=== PATIENT | female | born 1990 | race Caucasian/White ===

== ENCOUNTER 2024-02-22 20:52 | Emergency (ER) | payer MEDICAID ==
[~2024-02-22] VITALS: Ht 177.8 cm; Wt 68.0 kg
[2024-02-22] MEDS ORDERED: hydrOXYzine 10 MG TABLET ONE (21:29)
[2024-02-22] MEDS ORDERED: hydrOXYzine HCL SYRUP 10 MG/5 ML UDC PO ONE (21:30)
[2024-02-22] MEDS ORDERED: FAMOTIDINE (20 MG) 20 MG TABLET ONE (21:31)
[2024-02-22] MEDS ORDERED: predniSONE 20 MG TABLET ONE (21:31)
[2024-02-22] MEDS: FAMOTIDINE (20 MG) 20 MG TABLET PO ONE (21:46)
[2024-02-22] MEDS: predniSONE 50 MG TABLET PO ONE (21:46)
[2024-02-22] MEDS: hydrOXYzine 10 MG TABLET PO ONE (21:47)
[2024-02-22] MEDS ORDERED: PRED20TA PO (22:00)
[2024-02-22] MEDS ORDERED: HYDR-500 PO (22:00)
[2024-02-22 22:17] VITALS: BP 125/79; TEMP 98.6; O2SAT 98
== END 2024-02-22 22:17 | disposition home or self-care (01) ==
LOC: ER 20:55
DX: R21 Rash and other nonspecific skin eruption (principal); T78.49XA Other allergy, initial encounter; Z79.899 Other long term (current) drug therapy; X58.XXXA Exposure to other specified factors, initial encounter
CPT/HCPCS: 99284; Q0177; J7512

== ENCOUNTER 2025-03-14 11:00 | Emergency (ER) | payer MEDICAID ==
[~2025-03-14] VITALS: Ht 162.6 cm; Wt 74.8 kg
[~2025-03-14 11:00] MED LIST: HYDR-500 PO; PRED20TA PO
[2025-03-14] MEDS ORDERED: MORPHINE SULFATE INJ 4 MG/ML DISP.SYRIN ONE (12:02)
[2025-03-14] MEDS ORDERED: ONDANSETRON HCL/PF 4 MG/2 ML VIAL ONE (12:02)
[2025-03-14] MEDS ORDERED: CEFTRIAXONE 1GM BAG (ER ONLY) 50 ML IV ONE (12:02)
[2025-03-14] MEDS ORDERED: KETOROLAC TROMETHAMINE 15 MG/ML VIAL ONE (12:02)
[2025-03-14 12:05] LABS: PLATELET COUNT (AUTO) 288 K/uL (150-450); RED BLOOD CELL COUNT(AUTO) 4.58 MIL/uL (4.0-5.2); RED CELL DISTRIBUTION WIDTH 15.8 % (11.5-15.0); WHITE BLOOD COUNT (AUTO) 6.4 K/uL (4.3-11.0)
[2025-03-14 12:05] LABS: APPEARANCE,URINE SLIGHTLY CLOUDY (CLEAR); BLOOD, URINE Large Ery/uL (NEGATIVE); LEUKOCYTE ESTERASE ,URINE Small (NEGATIVE); UGLUCOSE Negative (NEGATIVE)
[2025-03-14 12:12] LABS: CALCIUM, SERUM 9.2 mg/dL (8.5-10.1); CREATININE 0.9 mg/dL (0.6-1.3); SODIUM SERUM 135.0 mmol/L (136-145); UREA NITROGEN, BLOOD 13.0 mg/dL (7-18)
[2025-03-14] MEDS: IV NS 0.9% 1,000 ML BAG IV ONE (12:12)
[2025-03-14] MEDS: MORPHINE SULFATE INJ 2 MG/ML DISP.SYRIN IV ONE (12:13)
[2025-03-14] MEDS: KETOROLAC TROMETHAMINE 15 MG/ML VIAL IV ONE (12:14)
[2025-03-14] MEDS: CEFTRIAXONE 1GM BAG (ER ONLY) 50 ML IV ONE (12:14)
[2025-03-14] MEDS: ONDANSETRON HCL/PF 4 MG/2 ML VIAL IVP ONE (12:15)
[2025-03-14 12:17] LABS: ASPARTATE AMINOTRANSFERASE 33.0 U/L (15-37); TOTAL PROTEIN, SERUM 8.5 g/dL (6.4-8.2)
[2025-03-14 12:26] LABS: NITRITE, URINE NEGATIVE (NEGATIVE)
[2025-03-14 12:28] LABS: ADD URINE CULTURE YES; SQUAMOUS EPITHELIAL CELL,UR Few /HPF (None Seen)
[2025-03-14] MEDS ORDERED: NAPR-1164 PO (13:38)
[2025-03-14] MEDS ORDERED: CIPR-262 PO (13:38)
[2025-03-14 14:21] VITALS: BP 121/79; TEMP 98.4; O2SAT 100
== END 2025-03-14 14:22 | disposition home or self-care (01) ==
LOC: ER 11:04
DX: N10 Acute pyelonephritis (principal); R30.0 Dysuria; R10.9 Unspecified abdominal pain; R10.2 Pelvic and perineal pain; Z79.52 Long term (current) use of systemic steroids
CPT/HCPCS: 99285; 74176; 96365; 96375; 96361; 85025; 80048; 87086; 83690; 80076; 84703; 81001; 36415; 84702; J1885; J2270; J2405; J7030; J0696